=== PATIENT | male | born 1965 | race Caucasian/White ===

== ENCOUNTER 2020-10-31 04:10 | Emergency (ER) | payer OTHER ==
[~2020-10-31 04:10] MED LIST: LASIX20 MG PO; VITAMIN D1000 UNIT PO; VOLTAREN **OUT75 MG PO; ZPAK PO
[2020-10-31 04:35] LABS: BASOPHIL 0.3 % (0-2); EOSINOPHIL 2.8 % (0-5); HCT 42.5 % (42.0-52.0); HGB 14.9 g/dl (13.2-18.0); LYMPHOCYTE 35.5 % (15-48); MCH 30.8 pg (25.0-31.0); MCHC 35.1 g/dL (32.0-36.0); MCV 87.8 fL (78.0-100.0); MONOCYTE 7.3 % (0-12); NEUTROPHIL 53.8 % (41-80); NRBC 0; PLT 183 K/uL (150-400); RBC 4.84 M/uL (4.70-6.00); RDW 13.3 % (11.5-14.0); WBC 6.4 K/uL (4.0-10.5)
[2020-10-31 04:47] LABS: INR 1.03 (0.9-1.2); PROTHROMBIN TIME 12.9 SECONDS (11.8-13.4); PTT 29.6 SECONDS (24.4-34.7)
[2020-10-31 04:52] LABS: ALBUMIN 3.5 g/dL (3.4-5.0); BILIRUBIN - TOTAL 0.7 mg/dL (0.2-1.0); CREATININE 0.94 mg/dL (0.67-1.17); GLOBULIN (CALCULATION) 3.5 g/dL; POTASSIUM 3.9 mmol/L (3.5-5.1)
[2020-10-31 19:34] LABS: INR 1.07 (0.9-1.2); PROTHROMBIN TIME 13.3 SECONDS (11.8-13.4)
[2020-10-31 19:35] LABS: PTT 61.1 SECONDS (24.4-34.7)
[2020-11-01 02:02] LABS: CREATININE 1.11 mg/dL (0.67-1.17); POTASSIUM 4.3 mmol/L (3.5-5.1)
== END 2020-11-01 10:45 | disposition other institution (70) ==
LOC: FER 04:10
PROVIDERS: Emergency Medicine
DX: I21.4 Non-ST elevation (NSTEMI) myocardial infarction (principal); Z20.822 Contact with and (suspected) exposure to COVID-19
CPT/HCPCS: 36415; 71045; 71275; 80048; 80053; 84484; 85025; 85610; 85730; 93005; J1644; J2405; J7030; Q9967; U0002

== ENCOUNTER 2020-11-05 04:31 | Emergency (ER) | payer OTHER ==
[2020-11-05 05:02] LABS: BASOPHIL 0.3 % (0-2); EOSINOPHIL 0.2 % (0-5); HCT 45.8 % (42.0-52.0); HGB 15.9 g/dl (13.2-18.0); LYMPHOCYTE 8.9 % (15-48); MCH 30.9 pg (25.0-31.0); MCHC 34.7 g/dL (32.0-36.0); MCV 88.9 fL (78.0-100.0); MONOCYTE 9.9 % (0-12); MPV 9.2 fL (6.0-9.5); NEUTROPHIL 80.2 % (41-80); NRBC 0; PLT 160 K/uL (150-400); RBC 5.15 M/uL (4.70-6.00); RDW 13.3 % (11.5-14.0); WBC 10.6 K/uL (4.0-10.5)
[2020-11-05 05:46] LABS: PRO-BNP 39 pg/mL (<125)
[2020-11-05 05:48] LABS: ALBUMIN 3.6 g/dL (3.4-5.0); BILIRUBIN - TOTAL 1.9 mg/dL (0.2-1.0); BUN/CREAT RATIO (CALC) 16.3 RATIO; C-REACTIVE PROTEIN 17.9 mg/dL (<=0.90); CREATININE 1.23 mg/dL (0.67-1.17); GLOBULIN (CALCULATION) 3.5 g/dL; POTASSIUM 4.1 mmol/L (3.5-5.1); TOTAL PROTEIN 7.1 g/dL (6.4-8.2)
[2020-11-05 05:52] LABS: LACTIC ACID 1.8 mmol/L (0.4-1.9)
== END 2020-11-05 14:26 | disposition other institution (70) ==
LOC: FER 04:31
PROVIDERS: Emergency Medicine Emergency Medical Services
DX: R19.7 Diarrhea, unspecified (principal); R11.2 Nausea with vomiting, unspecified; R55 Syncope and collapse; R16.1 Splenomegaly, not elsewhere classified; R10.84 Generalized abdominal pain; I45.10 Unspecified right bundle-branch block; I25.2 Old myocardial infarction; I10 Essential (primary) hypertension; Z87.442 Personal history of urinary calculi; Z90.49 Acquired absence of other specified parts of digestive tract; Z95.5 Presence of coronary angioplasty implant and graft; Z79.899 Other long term (current) drug therapy; Z98.890 Other specified postprocedural states
CPT/HCPCS: 36415; 70450; 71045; 71275; 80053; 83605; 83690; 83880; 84484; 85025; 85379; 86140; 87040; 87045; 87046; 87077; 87186; 87205; 87449; 93005; 93971; J2270; J2405; J7030; Q9967